=== PATIENT | male | born 2000 | race Caucasian/White ===

== ENCOUNTER 2020-08-03 11:30 | Emergency (ER) | payer SELFPAY ==
[~2020-08-03] VITALS: Ht 195.6 cm; Wt 113.4 kg
[2020-08-03 11:43] VITALS: BP 169/84
== END 2020-08-03 12:38 | disposition home or self-care (01) ==
LOC: ER 11:30
DX: S62.326A Displaced fracture of shaft of fifth metacarpal bone, right hand, initial encounter for closed fracture (principal); X58.XXXA Exposure to other specified factors, initial encounter; Y93.89 Activity, other specified; Y92.89 Other specified places as the place of occurrence of the external cause; Y99.8 Other external cause status
CPT/HCPCS: 29125; 29130; 73130

== ENCOUNTER 2021-06-05 20:56 | Emergency (ER) | payer SELFPAY ==
[~2021-06-05] VITALS: Ht 200.7 cm; Wt 111.1 kg
[2021-06-05 20:56] VITALS: BP 147/69
== END 2021-06-06 03:52 | disposition home or self-care (01) ==
LOC: ER 20:58
DX: S83.91XA Sprain of unspecified site of right knee, initial encounter (principal); W18.39XA Other fall on same level, initial encounter; Y93.89 Activity, other specified; Y92.89 Other specified places as the place of occurrence of the external cause; Y99.8 Other external cause status
CPT/HCPCS: 70450; 70486; 73562

== ENCOUNTER 2023-11-11 05:47 | Emergency (ER) | payer MEDICAID ==
[~2023-11-11] VITALS: Ht 195.6 cm; Wt 113.0 kg
[2023-11-11] MEDS ORDERED: SODIUM CHLORIDE 0.9% 1,000 ML IV ONE ×3 (06:15→13:45)
[2023-11-11 06:49] LABS: Basophils # (auto) 0.1 10 ^3/uL (0-0.2); Basophils % (auto) 0.5 % (0.0-2.0); Eosinophils # (auto) 0 10 ^3/uL (0-0.8); Eosinophils % (auto) 0.1 % (0.0-7.0); Hematocrit 43.8 % (41.0-53.0); Hemoglobin 14.6 g/dL (13.5-17.5); Lymphocytes # (auto) 2.5 10 ^3/uL (0.4-5.4); Lymphocytes % (auto) 13.6 % (10.0-50.0); Mean Corpuscular Hemoglobin 28.7 pg (28.0-32.0); Mean Corpuscular Hgb Conc. 33.2 g/dL (32.0-36.0); Mean Corpuscular Volume 86.2 fL (80.0-100.0); Monocytes # (auto) 1.1 10 ^3/uL (0-1.3); Monocytes % (auto) 5.8 % (0.0-12.0); Neutrophils # (auto) 14.9 10 ^3/uL (1.6-8.6); Red Blood Cells 5.08 10^6/uL (4.5-5.90); Red Cell Distribution Width 13.5 % (11.8-14.3); White Blood Cell 18.7 10^3/uL (4.4-10.8)
[2023-11-11 07:00] LABS: Acetaminophen < 2.0 UG/ML (10.0-20.0); Alanine Aminotransferase 42 U/L (7-40); Albumin 5.4 g/dL (3.2-4.8); Alkaline Phosphatase 102 U/L (46-116); Anion Gap 14 (5-15); Aspartate Aminotransferase 33 U/L (13-40); BUN/Creatinine Ratio 7.2 (10.0-20.0); Bilirubin, Total 0.4 mg/dL (0.2-1.0); Blood Alcohol 7.5 mg/dL (<10); Blood Urea Nitrogen 8 mg/dL (9-23); Carbon Dioxide 23 mmol/L (20-30); Chloride 106 mmol/L (98-107); Glucose 104 mg/dL (74-106); Potassium 4.5 mmol/L (3.5-5.1); Sodium 143 mmol/L (136-145); Total Protein 7.8 g/dL (5.7-8.2)
[2023-11-11 07:08] LABS: Salicylate < 3.0 mg/dL (2.8-20.0)
[2023-11-11 07:30] VITALS: O2SAT 97
[2023-11-11] MEDS ORDERED: LORazepam 2MG/ML-1ML VIAL IV ONE ×2 (08:00)
[2023-11-11 08:22] LABS: Lactic Acid w/Reflex 2.5 mmol/L (0.4-2.0)
[2023-11-11] MEDS: LORazepam 2MG/ML-1ML VIAL IV PRN ×2 (09:08→10:50)
[2023-11-11 09:43] LABS: Urine Bacteria FEW /hpf (None Seen); Urine Blood Negative /uL (Negative); Urine Clarity Clear (Clear); Urine Hyaline Cast FEW /lpf (0 - 2); Urine Protein, UAD TRACE (Negative); Urine Specific Gravity 1.014 (1.001-1.035); Urine Urobilinogen Normal (Negative); Urine WBC 2 /hpf (0 - 3); Urine pH 5.5 (5.0-8.0)
[2023-11-11 09:44] LABS: Amphetamine Screen, Urine Pos (NEGATIVE); Barbiturate Scree,Urine Neg (NEGATIVE); Benzodiazephine Screen, Urine Neg (NEGATIVE); Cocaine Screen, Urine Pos (NEGATIVE); Urine Color Yellow (Yellow)
[2023-11-11 09:45] LABS: Cannabinoid Screen, Urine Pos (NEGATIVE); Opiate Scree,Urine Neg (NEGATIVE); Phencyclidine Screen, Urine Neg (NEGATIVE)
[2023-11-11] MEDS ORDERED: HALOPERIDOL LACTATE 5 MG/ML INJ VIAL IM ONE (11:30)
[2023-11-11 19:31] VITALS: PULSE 85; RESP 19; O2SAT 97
[2023-11-11 23:04] VITALS: PULSE 80; RESP 18; O2SAT 98
[2023-11-12 03:45] VITALS: BP 109/49; PULSE 80; RESP 32; O2SAT 96
[2023-11-15 07:38] LABS: CARISOPRODOL Negative ug/mL (Cutoff:0.5); FENTANYL Negative ng/mL (Cutoff:1.0); MEPERIDINE Negative ng/mL (Cutoff:100); PHENCYCLIDINE Negative ng/mL (Cutoff:8)
== END 2023-11-12 04:37 | disposition home or self-care (01) ==
LOC: ER 05:47
DX: T50.911A Poisoning by multiple unspecified drugs, medicaments and biological substances, accidental (unintentional), initial encounter (principal); R25.2 Cramp and spasm; I10 Essential (primary) hypertension; R74.8 Abnormal levels of other serum enzymes; F12.10 Cannabis abuse, uncomplicated; Y92.89 Other specified places as the place of occurrence of the external cause
CPT/HCPCS: 36415; 80053; 80307; 80320; 80329; 81001; 82550; 83605; 84484; 85025; 93005; 96361; 96372; 96374; 99285; J1630; J2060; J7030